=== PATIENT | female | born 1945 | race Two or more races ===

== ENCOUNTER 2018-11-20 05:06 | Inpatient (IN) | payer OTHER ==
[~2018-11-20] VITALS: Ht 149.9 cm; Wt 74.8 kg
[2018-11-20] VITALS (10 sets, daily range): BP systolic 131–189; BP diastolic 68–106
[2018-11-20] MEDS ORDERED: ACETAMINOPHEN 325 MG TABLET ONE (05:47)
[2018-11-20] MEDS ORDERED: oxyCODONE HCL SR 10MG TAB.SR.12H PO ONE (05:47)
[2018-11-20] MEDS ORDERED: ANESTHESIA TRAY IN PYXIS 1 EA TRAY MC ONE (06:42)
[2018-11-20] MEDS ORDERED: BACITRACIN 50000 UNITS/VIAL ONE (06:42)
[2018-11-20] MEDS ORDERED: BUPIVACAINE 0.5 % PF 150 MG/30 ML VIAL ONE (06:51)
[2018-11-20] MEDS ORDERED: HYDROMORPHONE INJ 2 MG/ML DISP.SYRIN ONE (06:51)
[2018-11-20] MEDS ORDERED: TRANEXAMIC ACID 3,000 MG in SODIUM CHLORIDE IRRIG SOLUTION 70 ML IR ONE (07:00)
[2018-11-20] MEDS ORDERED: SEVOFLURANE 250 ML BOTTLE IH ONE (07:07)
[2018-11-20] MEDS ORDERED: HYDROMORPHONE 1 MG/1 ML DISP.SYRIN ONE (08:52)
[2018-11-20] MEDS ORDERED: MAG HYDROX/AL HYDROX/SIMETH 30 ML UDC PO PRN (09:00)
[2018-11-20] MEDS ORDERED: HYDROMORPHONE 1 MG/1 ML DISP.SYRIN SQ PRN (09:00)
[2018-11-20] MEDS ORDERED: CLONIDINE HCL 0.1 MG TABLET PO PRN (09:00)
[2018-11-20] MEDS ORDERED: ONDANSETRON HCL/PF 4 MG/2 ML VIAL IV PRN (09:00)
[2018-11-20] MEDS ORDERED: oxyCODONE IR immediate release 5 MG PO PRN (09:00)
[2018-11-20] MEDS ORDERED: PROMETHAZINE HCL 50 MG/ML AMPUL IM PRN (09:00)
[2018-11-20] MEDS ORDERED: MAGNESIUM HYDROXIDE 30 ML UDC PO PRN (09:00)
[2018-11-20] MEDS ORDERED: diphenhydrAMINE HCL 25 MG CAPSULE PO PRN (09:00)
[2018-11-20] MEDS ORDERED: ZOLPIDEM TARTRATE 5 MG TABLET PO PRN (09:30)
[2018-11-20] MEDS ORDERED: IV LR 1000 ML 1,000 ML IV PRN (09:30)
[2018-11-20] MEDS ORDERED: SENNOSIDES 8.6 MG TABLET PO PRN (09:30)
[2018-11-20] MEDS ORDERED: BISACODYL SUPP (10 MG) 10 MG/SUPP.RECT SUPP.RECT RC PRN (09:30)
--- NOTE | 2018-11-20 09:45 | NUR ---
Patient arrived on unit from Same Day Surgery via bed, in stable condition.
[2018-11-20] MEDS: FAMOTIDINE (20 MG) 20 MG TABLET PO SCH ×2 (10:00→20:54)
[2018-11-20] MEDS: DOCUSATE SODIUM 100 MG CAPSULE PO SCH ×2 (10:00→17:10)
--- NOTE | 2018-11-20 10:00 | NUR ---
MS sewage plant operator Notes Patient awake, resting in bed. Alert and oriented x4, primarily Estonian speaking. No complaints of pain at this time. Respirations even and unlabored on 2 L oxygen via nasal cannula, no acute distress noted. Peripheral IV to the right AC 18 gauge, intact, patent and infusing LR at 75 mL/hr as ordered. Skin assessment completed, no skin issues noted. Noted to have pal wrap dressing, immobilizer and ice pack to left leg and knee. Updated patient on current plan of care and post-operative plan. Oriented patient to unit and room, call light and safety measures. Safety and fall precautions in place: bed in lowest and locked position, side rails up x2, bed alarm on, call light and personal possessions within reach. Patient verbalized understanding. Post-op orders noted and carried out. Personal belongings noted and accounted for, acknowledged and inventoried on form in chart. Will continue to monitor and intervene as needed.
--- NOTE | 2018-11-20 11:30 | NUR ---
Nagi Lindsey NP informed of patient's admission. At bedside right now for history and physical. Noted patient's current blood pressures post-op. MUSICIAN INSTRUMENTAL aware. Orders to be received and carried out.
[2018-11-20] MEDS ORDERED: hydrALAZINE HCL IV 20 MG VIAL IV PRN (12:30)
[2018-11-20] MEDS ORDERED: HYDR25TA4 PO (12:36)
[2018-11-20] MEDS ORDERED: MIRT7.5T10 PO (12:36)
[2018-11-20] MEDS: ANCEF 1 GM/50 ML D5W IV SCH ×4 (15:16→22:37)
[2018-11-20] MEDS ORDERED: HYDROMORPHONE 1 MG/1 ML DISP.SYRIN IV PRN (16:00)
--- NOTE | 2018-11-20 18:30 | NUR ---
MS RN Closing Notes Patient awake, resting in bed. Alert and oriented x4, primarily Korean speaking. No complaints of pain at this time. Respirations even and unlabored on room air, no acute distress noted. Peripheral IV to the right AC 18 gauge, intact, patent and infusing LR at 75 mL/hr as ordered. Tolerating minimal PO fluids right now. Akhil wrap dressing, immobilizer and ice pack to left leg and knee, dressing clean, dry and intact. Updated patient on current plan of care and post-operative plan. Pain well managed with PRN medications. No other acute events this shift. Safety and fall precautions in place: bed in lowest and locked position, side rails up x2, bed alarm on, call light and personal possessions within reach. Patient verbalized understanding. Will endorse to night filler RN for continuity of care.
--- NOTE | 2018-11-20 20:09 | NUR ---
RN NOTES PATIENT IS ALERT AND ORIENTED X4, STABLE ON ROOM AIR, NO COMPLAIN OF PAIN, S/P LEFT TOTAL KNEE ARTHROPLASTY, IMMOBILIZER ON WHILE IN BED, DRESSING DRY AND CLEAN, ICE APPLIED, NO COMPLAIN OF N/V, TOLERATING PO INTAKE, DVT PUMP IN PLACE, NEEDS ATTENDED, CALL LIGHT WITHIN REACH.
--- NOTE | 2018-11-20 21:26 | NUR ---
Patient admitted s/p elective Left TKA. Primary dialect is Persian. She is alert and pleasant. She lives alone in a multi-level an apartment. She was ambulatory and independent with adl's prior to admission. She own a cane that she use as needed. Has good family support.Current dc plan is ARU vs home Addendum: 11/20/18 at 2126 by CRIS WILLS RN Amended: Links added.
[2018-11-20] MEDS ORDERED: RIVAROXABAN 10 MG TABLET PO SCH (23:00)
[2018-11-21] MEDS: HYDROCODONE/APAP 10/325MG 1 EA TABLET PO PRN ×2 (00:59→09:16)
[2018-11-21 05:57] LABS: BASOPHILS % (AUTO) 0.2 % (0.0-2.0); EOSINOPHILS % (AUTO) 0.1 % (0.0-6.0); HEMATOCRIT 38 % (33-45); HEMOGLOBIN 12.6 g/dL (11.5-14.8); LYMPHOCYTES # (AUTO) 1.3 /CMM (0.8-4.8); LYMPHOCYTES % (AUTO) 15.9 % (20.0-44.0); MEAN CORPUSCULAR HGB CONC 34 g/dl (31.0-36.0); MEAN CORPUSCULAR VOLUME 89 fL (82-100); MONOCYTES % (AUTO) 12.6 % (2.0-12.0); NEUTROPHILS # (AUTO) 5.8 /CMM (1.8-8.9); NEUTROPHILS % (AUTO) 71.2 % (43.0-81.0); PLATELET COUNT (AUTO) 191 /CMM (150-450); RED BLOOD CELL COUNT(AUTO) 4.21 MIL/uL (4.0-5.2); WHITE BLOOD COUNT (AUTO) 8.1 K/uL (4.3-11.0)
[2018-11-21 06:08] LABS: CALCIUM, SERUM 8.6 mg/dL (8.5-10.1); CARBON DIOXIDE 29 mmol/L (21-32); CHLORIDE 105 mmol/L (98-107); CREATININE 0.9 mg/dL (0.6-1.3); GLUCOSE 164 mg/dL (74-106); MAGNESIUM 1.9 mg/dL (1.8-2.4); PHOSPHORUS 3.3 mg/dL (2.5-4.9); POTASSIUM 4.6 mmol/L (3.5-5.1); SODIUM SERUM 137 mmol/L (136-145); UREA NITROGEN, BLOOD 15 mg/dL (7-18)
--- NOTE | 2018-11-21 06:17 | NUR ---
RN NOTES PATIENT IS ALERT AND ORIENTED X4, NO DISTRESS, ON ROOM AIR, SPO2 93%, COMPLAINED OF PAIN, GIVEN NORCO 10/325 WITH GOOD RELIEF, S/P LEFT KNEE ARTHROPLASTY, DRESSING DRY AND CLEAN, IMMOBILIZER, ICE APPLIED, V/S STABLE, DENIES NUMBNESS TO LEFT LEG/FOOT, NO DIZZINESS WHILE STANDING, ASSISTED TO TOILET WITH WALKER, WBAT, GIVEN BENADRYL FOR ITCH, ENCOURAGE AMBULATION WITH WALKER, POSSIBLE DC TO SNF TO CONTINUE PT
[2018-11-21 08:00] VITALS: BP 125/62
--- NOTE | 2018-11-21 08:00 | NUR ---
rn notes RECEIVED PATIENT IN THE BED. A/O X4, PATIENT BRAZILIAN SPEAKER. PATIENT HAS NO ACUTE RESPIRATORY DISTRESS, PATIENT REFUSED PAIN AT THIS TIME. PATIENT HAS BRACE ON LEFT KNEE FOR SAFETY AFTER SURGERY. DVT PUMP ON, V/S STABLE, NEEDS ATTENDED AND ANTICIPATED, IV ACCESS ON RIGHT AC AREA INTACT. PATIENT REFUSED IV INFUSION, PREFERRED PO INTAKE. CALL LIGHT WITHIN TO REACH, SAFETY PRECAUTION MAINTAINED ALL THE TIME.
[2018-11-21] MEDS ORDERED: ASPIRIN 325 MG TABLET PO SCH (09:00)
[2018-11-21] MEDS: DOCUSATE SODIUM 100 MG CAPSULE PO SCH (09:15)
[2018-11-21] MEDS: FAMOTIDINE (20 MG) 20 MG TABLET PO SCH (09:15)
--- NOTE | 2018-11-21 09:16 | NUR ---
RN NOTES ADMINISTERED NARCO 10/325 MG PO PRN FOR GENERALIZED PAIN 5/10 PER PATIENT REQUEST, V/S TAKEN BP 125/62, P-76, CONTINUED MONITORING.
[2018-11-21 16:00] VITALS: BP_SYST 100; BP_SYST 144; BP_DIAS 56; BP_DIAS 73
--- NOTE | 2018-11-21 17:30 | NUR ---
DISCHARGE NOTES PATIENT DISCHARGE AT THIS TIME GOING HOME WITH HOME HEALTH. PATIENT A/O X4, STABLE, NO SOB, REFUSED PAIN AT THIS TIME, STABLE. MED RECONCILIATION AND DISCHARGE ORDER REVIEWED AND EXPLAINED TO PATIENT AND DAUGHTER. PATIENT VERBALIZED UNDERSTANDING. PATIENT SIGN PAPERWORK. PRESCRIPTION HANDED TO THE DAUGHTER NAME DORA. PATIENT WILL FOLLOW PRIMARY MD, AND SURGEON. ESCORTED PATIENT TO THE LOBBY FOR SAFETY. PATIENT SEWING MACHINE OPERATOR SEMIAUTOMATIC BY DAUGHTER NAME DORA PHONE # [phone].
== END 2018-11-21 17:30 | disposition home health service (06) | DRG 470 ==
LOC: DS 05:06 → MED 11:04
PROVIDERS: ADMIT Nurse Practitioner Acute Care; ATTEND Nurse Practitioner Acute Care
PROC: 0SRD0J9 Replacement of Left Knee Joint with Synthetic Substitute, Cemented, Open Approach (ICD-10-PCS; principal; 2018-11-20)
DX: M17.12 Unilateral primary osteoarthritis, left knee (principal); E44.1 Mild protein-calorie malnutrition; E66.9 Obesity, unspecified; I10 Essential (primary) hypertension; Z68.33 Body mass index [BMI] 33.0-33.9, adult; Z96.651 Presence of right artificial knee joint
CPT/HCPCS: 36415; 80048-TC; 83735-TC; 84100-TC; 85025-TC; 86850-TC; 86921-TC; 87081-TC; 88305-TC; 88311-TC; 97110-TC; 97116-TC; 97530-TC; 97760-TC; A4217; A6402; C1713; G0378; J0690; J1100; J1170; J2405; J2550; J2704; J3490; J7050; J7060; J7120; L1830; Q0163